=== PATIENT | female | born 1935 | race Caucasian/White ===

== ENCOUNTER 2020-05-15 11:59 | Inpatient (IN) | payer MEDICARE ==
[~2020-05-15] VITALS: Ht 157.5 cm; Wt 68.4 kg
[2020-05-15 13:00] LABS: BASO # 0.1 x10^3/uL (0.0-0.2); BASO % 1 % (0-3); EOS # 0.3 x10^3/uL (0.0-0.7); EOS % 4 % (0-3); HEMATOCRIT 36.1 % (36.0-47.0); HEMOGLOBIN 11.6 g/dL (12.0-15.5); LYMPH # 1.5 x10^3/uL (1.0-4.8); LYMPH % 18 % (24-48); MEAN CORPUSCULAR HEMOGLOBIN 29 pg (25-35); MEAN CORPUSCULAR HGB CONC 32 g/dL (31-37); MEAN CORPUSCULAR VOLUME 90 fL (79-100); MONO # 0.9 x10^3/uL (0.0-1.1); MONO % 11 % (0-9); NEUT # 5.7 x10^3uL (1.8-7.7); NEUT % 67 % (31-73); PLATELET COUNT 450 x10^3/uL (140-400); RED BLOOD COUNT 4.02 x10^6/uL (3.50-5.40); RED CELL DISTRIBUTION WIDTH 17.7 % (11.5-14.5); WHITE BLOOD COUNT 8.6 x10^3/uL (4.0-11.0)
--- NOTE | 2020-05-15 13:12 | RAD ---
ADDENDUM #1 Addendum: The history section of the report also includes "pain". Electronically signed by: Bettye Dexter MD (05/22/2020 8:18 AM) [id number] ORIGINAL REPORT EXAM: Head and cervical spine CT without contrast. HISTORY: Fall. TECHNIQUE: Computed tomographic images of the head and cervical spine were obtained without contrast. *One or more of the following individualized dose reduction techniques were utilized for this examina tion: 1. Automated exposure control. 2. Adjustment of the mA and/or kV according to patient size. 3. Use of iterative reconstruction technique. COMPARISON: None. FINDINGS: Head: There is no acute or subacute intracranial hemorrhage. There is no mass effect or midline shift . There is no hydrocephalus. There is encephalomalacia due to chronic infarction involving the right frontoparietal junction near the vertex. There are are extensive areas of hypodensity within the cere bral white matter, likely due to chronic small vessel disease. There is cerebral volume loss. There i s evidence of lens surgery. The paranasal sinuses mastoid air cells are clear. No suspicious calvaria l lesion is seen. Cervical spine: There is mild anterolisthesis of C7 on T1. There is multilevel endplate remodeling wi th disc space narrowing and osteophytosis. This is predominantly at C5-C6 and C6-C7. There is calcifi ed pannus surrounding the dens. There is multilevel facet and uncovertebral arthropathy. The combinat ion of degenerative changes results in mild left foraminal stenosis at C3-C4, moderate left foraminal stenosis at C4-C5, severe right greater than left foraminal and mild central canal stenosis at C5-C6 and severe bilateral foraminal and mild central canal stenosis at C6-C7. IMPRESSION: 1. No acute intracranial finding or evidence of acute cervical spine trauma. 2. Chronic infarct within the right frontoparietal junction and extensive bilateral cerebral white ma tter is likely due to chronic small vessel disease. 3. Multilevel degenerative change of the cervical spine, resulting in stenosis at the lower cervical levels. This is described above. Electronically signed by: Bettye Dexter MD (05/15/2020 1:09 PM) [id number]
--- NOTE | 2020-05-15 13:14 | RAD ---
XR CHEST 1V History: Reason: fall / Spl. Instructions: / History: . Pain Comparison: None. Findings: Ill-defined opacities bilaterally. No pleural effusion. No pneumothorax. Normal heart size. Impression: 1. Linear ill-defined opacities bilaterally, may represent atelectasis or developing infiltrates. Re commend further clinical evaluation. Electronically signed by: Fitz Campoverde DO (05/15/2020 1:11 PM) [facility]
--- NOTE | 2020-05-15 13:17 | RAD ---
XR PELVIS 1-2V History: Reason: fall / Spl. Instructions: / History: . Pain Technique: AP view the pelvis. Comparison: None. Findings: Normal AP alignment of the hips. No fracture. Mild pubic symphysis DJD. Lower lumbar spondylosis. Impression: 1. No acute osseous abnormality. Electronically signed by: Fitz Campoverde DO (05/15/2020 1:14 PM) [facility]
--- NOTE | 2020-05-15 13:22 | RAD ---
XR KNEE 3 VIEWS History: Reason: fall / Spl. Instructions: / History: . Pain Technique: 3 views bilateral knees. Comparison: None. Findings: Right knee: Genu varus alignment. No dislocation. Moderate to severe tricompartment knee DJD most pro minent within the medial and patellofemoral compartments. No significant knee joint effusion. No frac ture. Vascular calcifications. Left knee: Genu varus alignment. No dislocation. No fracture. Left knee moderate tricompartment degen erative changes most prominent within the medial and patellofemoral compartments. No significant knee joint effusion. Vascular calcifications. Impression: 1. No acute osseous abnormality. 2. Bilateral knee DJD, right greater than left. Electronically signed by: Fitz Campoverde DO (05/15/2020 1:19 PM) [facility]
--- NOTE | 2020-05-15 13:28 | EKG ---
[address] [address] Test Date: 2020-05-15 Test Time: 12:39:16 Pat Name: ERLIN CHANEY Department: Room: Gender: F Landscaping Crew Leader: RAFAEL : 1935 Requested By: MISSAEL BOBO Order Number: [id number] Reading MD: Measurements Intervals [place] Rate: 89 P: 49 WV: 168 QRS: -49 QRSD: 138 T: 11 QT: 376 QTc: 459 Interpretive Statements SINUS RHYTHM ABNORMAL LEFT AXIS DEVIATION RIGHT BUNDLE BRANCH BLOCK RVH WITH REPOLARIZATION ABNORMALITY QRS(T) CONTOUR ABNORMALITY CONSIDER INFERIOR INFARCT ABNORMAL ECG RI6.02 No previous ECG available for comparison
[2020-05-15 13:55] LABS: CREATININE 2.9 mg/dL (0.6-1.0); GFR 15.5; POTASSIUM 4.3 mmol/L (3.5-5.1)
[2020-05-15 14:01] LABS: ALBUMIN 2.7 g/dL (3.4-5.0); ALBUMIN/GLOBULIN RATIO 0.6 (1.0-1.7); TOTAL BILIRUBIN 0.2 mg/dL (0.2-1.0); TOTAL PROTEIN 7.5 g/dL (6.4-8.2)
[2020-05-15] MEDS ORDERED: IV NORMAL SALINE 50ML 50 ML ONE (14:07)
[2020-05-15] MEDS ORDERED: cefTRIAXone SODIUM 1 GM VIAL ONE (14:07)
[2020-05-15 14:14] LABS: BACTERIA,URINE MANY /HPF (0-FEW); BILIRUBIN,URINE NEG (NEG); CLARITY,URINE CLOUDY; COLOR,URINE YELLOW; GLUCOSE,URINE NEG (NEG); NITRITE,URINE NEG (NEG); UROBILINOGEN,URINE 0.2 mg/dL (0.2 mg/dL); WBC,URINE TNTC /HPF (0-4)
--- NOTE | 2020-05-15 14:28 | PHYS DOC ---
Past History Past Medical History: High Cholesterol, Hypertension, Stroke Alcohol Use: None General Adult EDM: Chief Complaint: MECHANICAL FALL HPI: HPI: 85-year-old female past medical history of hypertension, hyperlipidemia and CVA, presents to the ED with patient's granddaughter in law, patient complains of sore throat for the past 5 days " it's why I have not eaten anything." Granddaughter reports that patient is making bizarre inappropriate statements-is not as alert as she normally is. Pt fell on friday. Has chronic knee pain and can no longer bear weight. Review of Systems: Review of Systems: Constitutional: Denies fever or chills Eyes: Denies change in visual acuity or eye discharge HENT: Denies nasal congestion or rhinorrhea Respiratory: Denies cough or shortness of breath Cardiovascular: Denies chest pain or edema GI: Denies abdominal pain, nausea, vomiting, bloody stools or diarrhea : Denies hematuria or vaginal bleeding Musculoskeletal: Denies back pain or joint deformity Integument: Denies rash Neurologic: Denies headache, midline neck pain focal weakness or sensory changes Endocrine: Denies polyuria or polydipsia Lymphatic: Denies swollen glands Psychiatric: Denies depression or anxiety Current Medications: Current Meds: Current Medications Medications (Trade) Dose Ordered Sig/Parth Start Time Stop Time Status Last Admin Dose Admin Ceftriaxone Sodium 1 gm/ Sodium Chloride 50 ml @ 100 mls/hr 1X ONCE 05/15/20 14:00 05/15/20 14:29 05/15/20 14:13 100 MLS/HR Ceftriaxone Sodium (Rocephin) 1 gm STK-MED ONCE 05/15/20 14:07 05/15/20 14:07 DC Sodium Chloride 50 ml @ As Directed STK-MED ONCE 05/15/20 14:07 05/15/20 14:07 DC Allergies: Allergies: Allergies Coded Allergies Type Severity Reaction Last Updated Verified No Known Drug Allergies 05/15/20 No Physical Exam: PE: Constitutional: Well developed, well nourished, no acute distress, non-toxic appearance-flu appearing. HENT: Normocephalic, atraumatic, very dry cracked mucous membranes Eyes: EOMI, conjunctiva normal, no discharge. Neck: Normal range of motion, supple, Cardiovascular: S1/2 present, regular rhythm Lungs & Thorax: Speaking in full sentences, bilateral equal chest rise, no tachypnea or increased work of breathing Abdomen: soft, no tenderness, Skin: Warm, dry, no erythema, no rash. [] Extremities: No tenderness, no cyanosis, Neurologic: Alert and oriented X 3, normal motor function, normal sensory function, no focal deficits noted. [] Psychologic: Affect normal, mood normal. [] Current Patient Data: Labs: Laboratory Tests Test 05/15/20 12:36 05/15/20 13:28 05/15/20 13:44 White Blood Count 8.6 x10^3/uL (4.0-11.0) Red Blood Count 4.02 x10^6/uL (3.50-5.40) Hemoglobin 11.6 g/dL (12.0-15.5) L Hematocrit 36.1 % (36.0-47.0) Mean Corpuscular Volume 90 fL (79-100) Mean Corpuscular Hemoglobin 29 pg (25-35) Mean Corpuscular Hemoglobin Concent 32 g/dL (31-37) Red Cell Distribution Width 17.7 % (11.5-14.5) H Platelet Count 450 x10^3/uL (140-400) H Neutrophils (%) (Auto) 67 % (31-73) Lymphocytes (%) (Auto) 18 % (24-48) L Monocytes (%) (Auto) 11 % (0-9) H Eosinophils (%) (Auto) 4 % (0-3) H Basophils (%) (Auto) 1 % (0-3) Neutrophils # (Auto) 5.7 x10^3uL (1.8-7.7) Lymphocytes # (Auto) 1.5 x10^3/uL (1.0-4.8) Monocytes # (Auto) 0.9 x10^3/uL (0.0-1.1) Eosinophils # (Auto) 0.3 x10^3/uL (0.0-0.7) Basophils # (Auto) 0.1 x10^3/uL (0.0-0.2) Sodium Level 140 mmol/L (136-145) Potassium Level 4.3 mmol/L (3.5-5.1) Chloride Level 105 mmol/L (98-107) Carbon Dioxide Level 21 mmol/L (21-32) Anion Gap 14 (6-14) Blood Urea Nitrogen 52 mg/dL (7-20) H Creatinine 2.9 mg/dL (0.6-1.0) H Estimated GFR (Cockcroft-Gault) 15.5 BUN/Creatinine Ratio 18 (6-20) Glucose Level 166 mg/dL (70-99) H Calcium Level 9.0 mg/dL (8.5-10.1) Total Bilirubin 0.2 mg/dL (0.2-1.0) Aspartate Amino Transferase (AST) 12 U/L (15-37) L Alanine Aminotransferase (ALT) 19 U/L (14-59) Alkaline Phosphatase 116 U/L (46-116) Creatine Kinase 17 U/L (26-192) L Troponin I Quantitative < 0.017 ng/mL (0-0.055) Total Protein 7.5 g/dL (6.4-8.2) Albumin 2.7 g/dL (3.4-5.0) L Albumin/Globulin Ratio 0.6 (1.0-1.7) L Urine Collection Type U cath Urine Color Yellow Urine Clarity Cloudy Urine pH 6.0 Urine Specific [place] 1.020 Urine Protein >100 mg/dl (NEG-TRACE) Urine Glucose (UA) Neg mg/dL (NEG) Urine Ketones (Stick) Neg mg/dL (NEG) Urine Blood Large (NEG) Urine Nitrite Neg (NEG) Urine Bilirubin Neg (NEG) Urine Urobilinogen Dipstick 0.2 mg/dL (0.2 mg/dL) Urine Leukocyte Esterase Mod (NEG) Urine RBC 11-20 /HPF (0-2) Urine WBC Tntc /HPF (0-4) Urine Squamous Epithelial Cells None /LPF Urine Bacteria Many /HPF (0-FEW) Vital Signs: Vital Signs Date Time Temp Pulse Resp B/P (MAP) Pulse Ox O2 Delivery O2 Flow Rate FiO2 05/15/20 14:11 80 16 122/76 (91) 97 Room Air 05/15/20 12:08 98.0 EKG: EKG: Sinus rhythm 89 bpm, left axis deviation, QRS 138, T wave inversion lead III, V1, V2 and V3, right bundle branch block with strain, no ST elevations or ST depressions Radiology/Procedures: Radiology/Procedures: MAGING REPORT Signed PATIENT: ERLIN CHANEY ACCOUNT: [id number] : 1935 LOCATION: ER AGE: 85 SEX: F EXAM STATUS: REG ER ORD. PHYSICIAN: MISSAEL BOBO DO REASON: fall PROCEDURE: PELVIS XR PELVIS 1-2V History: Reason: fall / Spl. Instructions: / History: . Pain Technique: AP view the pelvis. Comparison: None. Findings: Normal AP alignment of the hips. No fracture. Mild pubic symphysis DJD. Lower lumbar spondylosis. Impression: 1. No acute osseous abnormality. Electronically signed by: Fitz Campoverde DO (05/15/2020 1:14 PM) [facility] DICTATED AND SIGNED BY: FITZ CAMPOVERDE DO DATE: 05/15/20 131 CC: PCP,UNKNOWN; MISSAEL BOBO DO ~MTH0 0 IMAGING REPORT Signed PATIENT: ERLIN CHANEY ACCOUNT: [id number] : 1935 LOCATION: ER AGE: 85 SEX: F EXAM STATUS: REG ER ORD. PHYSICIAN: MISSAEL BOBO DO REASON: fall PROCEDURE: KNEE BILAT 3V XR KNEE 3 VIEWS History: Reason: fall / Spl. Instructions: / History: . Pain Technique: 3 views bilateral knees. Comparison: None. Findings: Right knee: Genu varus alignment. No dislocation. Moderate to severe tricompartment knee DJD most prominent within the medial and patellofemoral compartments. No significant knee joint effusion. No fracture. Vascular calcifications. Left knee: Genu varus alignment. No dislocation. No fracture. Left knee moderate tricompartment degenerative changes most prominent within the medial and patellofemoral compartments. No significant knee joint effusion. Vascular calc ifications. Impression: 1. No acute osseous abnormality. 2. Bilateral knee DJD, right greater than left. Electronically signed by: Fitz Campoverde DO (05/15/2020 1:19 PM) [facility] DICTATED AND SIGNED BY: FITZ CAMPOVERDE DO DATE: 05/15/20 1314 CC: PCP,UNKNOWN; MISSAEL BOBO DO ~MTH0 0 IMAGING REPORT Signed PATIENT: ERLIN CHANEY ACCOUNT: [id number] : 1935 LOCATION: ER AGE: 85 SEX: F EXAM STATUS: REG ER ORD. PHYSICIAN: MISSAEL BOBO DO REASON: fall PROCEDURE: CT HEAD AND CERVICAL SPINE WO EXAM: Head and cervical spine CT without contrast. HISTORY: Fall. TECHNIQUE: Computed tomographic images of the head and cervical spine were obtained without contrast. *One or more of the following individualized dose reduction techniques were utilized for this examination: 1. Automated exposure control. 2. Adjustment of the mA and/or kV according to patient size. 3. Use of iterative reconstruction technique. COMPARISON: None. FINDINGS: Head: There is no acute or subacute intracranial hemorrhage. There is no mass effect or midline shift. There is no hydrocephalus. There is encephalomalacia due to chronic infarction involving the right frontoparietal junction near the vertex. There are are extensive areas of hypodensity within the cerebral white matter, likely due to chronic small vessel disease. There is cerebral volume loss. There is evidence of lens surgery. The paranasal sinuses mastoid air cells are clear. No suspicious calvarial lesion is seen. Cervical spine: There is mild anterolisthesis of C7 on T1. There is multilevel endplate remodeling with disc space narrowing and osteophytosis. This is predominantly at C5-C6 and C6-C7. There is calcified pannus surrounding the dens. There is multilevel facet and uncovertebral arthropathy. The combination of degenerative changes results in mild left foraminal stenosis at C3-C4, moderate left foraminal stenosis at C4-C5, severe right greater than left for aminal and mild central canal stenosis at C5-C6 and severe bilateral foraminal and mild central canal stenosis at C6-C7. IMPRESSION: 1. No acute intracranial finding or evidence of acute cervical spine trauma. 2. Chronic infarct within the right frontoparietal junction and extensive bilateral cerebral white matter is likely due to chronic small vessel disease. 3. Multilevel degenerative change of the cervical spine, resulting in stenosis at the lower cervical levels. This is described above. Electronically signed by: Bettye Colon MD (05/15/2020 1:09 PM) [id number] DICTATED AND SIGNED BY: BETTYE COLON MD DATE: 05/15/20 1306 CC: PCP,UNKNOWN; MISSAEL BOBO DO ~MTH0 0 IMAGING REPORT Signed PATIENT: ERLIN CHANEY ACCOUNT: [id number] : 1935 LOCATION: ER AGE: 85 SEX: F EXAM STATUS: REG ER ORD. PHYSICIAN: MISSAEL BOBO DO REASON: fall PROCEDURE: CHEST AP ONLY XR CHEST 1V History: Reason: fall / Spl. Instructions: / History: . Pain Comparison: None. Findings: Ill-defined opacities bilaterally. No pleural effusion. No pneumothorax. Normal heart size. Impression: 1. Linear ill-defined opacities bilaterally, may represent atelectasis or developing infiltrates. Recommend further clinical evaluation. Electronically signed by: Fitz Campoverde DO (05/15/2020 1:11 PM) [facility] DICTATED AND SIGNED BY: FITZ CAMPOVERDE DO DATE: 05/15/20 1310 CC: PCP,UNKNOWN; MISSAEL BOBO DO ~MTH0 0 Heart Score: C/O Chest Pain: No Risk Factors: Risk Factors: DM, Current or recent (<one month) smoker, HTN, HLP, family history of CAD, obesity. Risk Scores: Score 0 - 3: 2.5% MACE over next 6 weeks - Discharge Home Score 4 - 6: 20.3% MACE over next 6 weeks - Admit for Clinical Observation Score 7 - 10: 72.7% MACE over next 6 weeks - Early Invasive Strategies Course & Med Decision Making: Course & Med Decision Making Pertinent Labs and Imaging studies reviewed. (See chart for details) Concern for delirium secondary to urinary tract infection with renal insufficiency (prerenal no prior for baseline comparison) and normocytic anemia. Son is DPOA and per phone conversation w/granddaughter, thinks pt is a DNR but he cannot find the form - reports if pt should need intubating/is in respiratory distress or if her heart stops, family does not want patient intubated or CPR performed. Granddaughter at bedside agrees with this plan. Son is on his way to the hospital. I have spoken with the patient and/or caregivers. I have explained the patient's condition, diagnosis and treatment plan based on the information available to me at this time. I have answered the patient's and/or caregivers questions and answered any concerns. The patient and/or caregivers have as good an understanding of the patient's diagnosis, condition and treatment plan as can be expected at this point. The patient has been stabilized within the capability of the emergency department. The patient will be transported for further care and management or will be moved to an observation or inpatient service. I have communicated with the staff or medical practitioner taking over this patient's care. Dragon Disclaimer: Kilo Disclaimer: This electronic medical record was generated, in whole or in part, using a voice recognition dictation system. Departure Departure: Impression: Primary Impression: Delirium Additional Impressions: Renal insufficiency Normocytic anemia UTI (urinary tract infection) Disposition: ADMITTED INPT THIS HOSP Admitting Physician: Jeff Otero Condition: STABLE Referrals: PCP,UNKNOWN (PCP) MISSAEL BOBO DO May 15, 2020 14:28
[2020-05-15] MEDS ORDERED: AZITHROMYCIN 500 MG in IV NORMAL SALINE 250ML 250 ML IV ONE (14:30)
[2020-05-15] MEDS ORDERED: IV NORMAL SALINE 250ML 250 ML ONE (14:45)
[2020-05-15] MEDS ORDERED: AZITHROMYCIN 500 MG VIAL. IV ONE (14:46)
[2020-05-15] MEDS ORDERED: BENZOCAINE/MENTHOL LOZNGE 18'S BOX. PO PRN (15:15)
[2020-05-15] MEDS ORDERED: ACETAMINOPHEN 325 MG TABLET PO PRN (15:45)
[2020-05-15] MEDS ORDERED: IV NORMAL SALINE 1,000ML 1,000 ML IV ONE (15:45)
[2020-05-15 17:15] VITALS: BP 132/74
--- NOTE | 2020-05-15 17:27 | NUR ---
NSG NOTE; ADMISSION ADMIT TO ROOM 124 AT 1630 FROM ED VIA CART ACCOMP BY EMS PERSONNEL ADMITTED FOR FALL, AMS, UTI AND ACUTE RENAL INSUFFICIENCY
[2020-05-15] MEDS ORDERED: POLYETHYLENE GLYCOL 3350 17 GM PACKET. PO PRN (18:45)
[2020-05-15] MEDS ORDERED: POLY17PO5 PO (18:49)
[2020-05-15] MEDS ORDERED: ASCO500C PO (18:49)
[2020-05-15] MEDS ORDERED: ZINC PO (18:49)
[2020-05-15] MEDS ORDERED: ACET500T68 PO (18:49)
[2020-05-15] MEDS ORDERED: AMLO-186 PO (18:49)
[2020-05-15] MEDS ORDERED: ASPI-630 PO (18:49)
[2020-05-15] MEDS ORDERED: SOLI10TA2 PO (18:49)
[2020-05-15] MEDS ORDERED: GABA100C81 PO (18:49)
[2020-05-15] MEDS ORDERED: SIMV40TA18 PO (18:49)
[2020-05-15] MEDS ORDERED: FAMO-63 PO (18:49)
[2020-05-15] MEDS ORDERED: DOCU-109 PO (18:49)
[2020-05-15] MEDS ORDERED: CHOL400T36 PO (18:49)
--- NOTE | 2020-05-15 19:04 | NUR ---
NSG NOTE; [facility] BATH AID 3X WEEKLY, PT 2X WEEKLY, OT 1X WEEKLY, RN NO LONGER COMES OUT TO THE HOUSE PT IS LEFT HOME ALONE AT HER SON'S HOUSE M-F DAILY WHILE THEY ARE AT WORK. SHE HAS A LIFE ALERT WHICH SHE USED LAST WEEK WHEN UNABLE TO GET UP OFF THE TOILET
[2020-05-15] MEDS: OXYBUTYNIN CHLORIDE 5 MG TABLET PO SCH (19:35)
[2020-05-15 22:19] VITALS: BP 127/72
[2020-05-16 05:46] VITALS: BP 144/60
[2020-05-16 06:29] LABS: CALCIUM 8.8 mg/dL (8.5-10.1); CREATININE 2.4 mg/dL (0.6-1.0); GFR 19.3; POTASSIUM 4.1 mmol/L (3.5-5.1)
[2020-05-16] MEDS: FAMOTIDINE 20 MG TABLET PO SCH (09:07)
[2020-05-16] MEDS: DOCUSATE SODIUM 100 MG CAPSULE PO SCH (09:07)
[2020-05-16] MEDS: ASPIRIN CHEWABLE 81 MG TABLET. PO SCH (09:07)
[2020-05-16] MEDS: amLODIPine BESYLATE 5 MG TABLET PO SCH (09:07)
[2020-05-16] MEDS: OXYBUTYNIN CHLORIDE 5 MG TABLET PO SCH ×3 (09:07→19:51)
--- NOTE | 2020-05-16 09:38 | HP ---
ADMIT DATE: 05/15/2020 ATTENDING PHYSICIAN: Dr. Stoll. CHIEF COMPLAINT: Mechanical fall and weakness. HISTORY OF PRESENT ILLNESS: The patient is an 85-year-old female from [place], [place]. Her son lives in [place]. She had fallen at home and has been unable to care for self, sustaining injury to her knee. She cannot bear weight. She has had a previous stroke. She is becoming more debilitated. Clinically, she appears dehydrated. She is acting and making bizarre statements. There is underlying dementia. Clinically, she was dry with elevated BUN and creatinine. She was admitted with dehydration, altered mentation and frequent falls and generalized debilitation. PAST MEDICAL HISTORY: Significant for essential hypertension, hyperlipidemia, old CVA, generalized debilitation and arthritis. She cannot bear weight on the knee. ALLERGIES: She has no recorded drug allergies. CURRENT MEDICINES: Reviewed. She takes scheduled Tylenol, amlodipine, ascorbic acid, aspirin, vitamin D3, docusate, Pepcid, Neurontin, MiraLax, Zocor, VESIcare and zinc. SOCIAL HISTORY: Nonsmoker, nondrinker. Supposedly, she had COVID exposure, back in February of this past year, she has recovered from that. FAMILY HISTORY: Noncontributory. REVIEW OF SYSTEMS: Significant for mild nonproductive cough, no fevers, chills, generalized weakness, degenerative arthritis pain. All other systems reviewed and turned to be negative. PHYSICAL EXAMINATION: GENERAL: When I saw her, this is a pleasant elderly female, appears mildly confused. INITIAL VITAL SIGNS: Showed a blood pressure 144/60, pulse 67 and regular, temperature 97.5 degrees Fahrenheit, oxygen saturation 94% on room air. HEENT: Head is without trauma. Pupils are reactive. Sclerae are nonicteric. Oropharynx clear. NECK: Supple, no bruits. LUNGS: Good breath sounds. CARDIOVASCULAR: Showed regular heart tones. No gallops. ABDOMEN: Soft, no guarding. Bowel sounds are hypoactive. EXTREMITIES: Showed trace edema. NEUROLOGIC: Pleasantly confused, otherwise intact. SKIN: Warm and dry. Speech is fluent. PERTINENT LABORATORY STUDIES: On admission, her hemoglobin was 11.6 g/dL with white count of 8600. BUN was 52 mg/dL, creatinine 2.9 mg/dL. I do not know what her baseline is. Potassium is 4.3 mEq per liter, sodium 140 mEq/L. Nonfasting blood sugar 166 mg/dL. Cardiac enzymes were negative. Transaminases are all within normal range. The obligatory imaging studies, she had a CT of the head, which showed no mass effect, no intracranial hemorrhage. There is encephalomalacia of the right frontoparietal junction suggesting an old stroke. There is chronic small vessel disease. There is mild anterior spondylolisthesis of C7 on T1, multilevel endplate, remodeling with disk narrowing and osteophytosis. There is moderate left foraminal stenosis at C4-C5 level. Chest x-ray showed no decompensation or acute infiltrates identified. There is no evidence of long bone fractures. ASSESSMENT: 1. This 85-year-old female has become progressively weaker. She is falling at home and she cannot take care of herself. 2. Generalized debilitation. 3. Recent fall. 4. Degenerative arthritis. 5. Hyperlipidemia. 6. Underlying dementia. 7. Dehydration with prerenal azotemia. PLAN: 1. Admit to the inpatient unit. 2. Gentle IV hydration. 3. Serial chemistries. 4. Diet as tolerated. 5. Physical therapy for evaluation. 6. manager quality compliance will look for eventual placement per family's inability to care for her. She is a DNR per advanced directive. FANTASMA STOLL MD DR: CESAR/erik JOB#: [id number] / [id number]
[2020-05-16 10:03] VITALS: BP 115/47
[2020-05-16] MEDS: ACETAMINOPHEN 500 MG TABLET PO PRN (11:07)
[2020-05-16 15:38] VITALS: BP 115/51
--- NOTE | 2020-05-16 15:49 | NUR ---
Pt complains of knee pain that is relived by resting. pt calm and resting in bed.
[2020-05-16 19:18] VITALS: BP 112/68
[2020-05-16] MEDS: ATORVASTATIN CALCIUM 20 MG TABLET PO SCH (19:51)
[2020-05-16 22:22] VITALS: BP 126/62
[2020-05-17 05:07] VITALS: BP 134/53
[2020-05-17 07:22] LABS: CALCIUM 8.9 mg/dL (8.5-10.1); CREATININE 2.3 mg/dL (0.6-1.0); GFR 20.3; POTASSIUM 4.1 mmol/L (3.5-5.1)
[2020-05-17] MEDS: OXYBUTYNIN CHLORIDE 5 MG TABLET PO SCH ×3 (08:37→20:12)
[2020-05-17] MEDS: amLODIPine BESYLATE 5 MG TABLET PO SCH (08:37)
[2020-05-17] MEDS: DOCUSATE SODIUM 100 MG CAPSULE PO SCH (08:37)
[2020-05-17] MEDS: ASPIRIN CHEWABLE 81 MG TABLET. PO SCH (08:37)
[2020-05-17] MEDS: FAMOTIDINE 20 MG TABLET PO SCH (08:37)
[2020-05-17 10:19] VITALS: BP 108/72
[2020-05-17 15:16] VITALS: BP 122/55
[2020-05-17] MEDS: IV DEXTROSE 5 %-0.2 % NACL 1,000 ML IV SCH ×2 (15:53→23:52)
[2020-05-17] MEDS: ACETAMINOPHEN 500 MG TABLET PO PRN (17:05)
--- NOTE | 2020-05-17 17:45 | PN ---
DATE: 05/17/2020 SUBJECTIVE: The patient is resting, slightly propped up in bed, in no apparent distress. She continues to be somewhat confused, but denied any complaint. The nursing staff stated that the patient was able to walk with a walker with physical therapy. She was admitted with acute kidney injury that is improving. Her creatinine is coming down steadily from 2.9 down to 2.3. Her blood cultures showed no growth after one day and her throat culture also was negative; however, her urine culture has grown more than 100,000 colony forming units per mL of gram negative rods identified as Escherichia coli. She also grew more than 100,000 colony forming units per mL of gram-positive rods identified as lactobacillus species. The Escherichia coli is susceptible to almost all antibiotics including ceftriaxone. ASSESSMENT: 1. This is an 85-year-old female patient who apparently was admitted because of progressive weakness. She is falling at home. She cannot take care of herself. 2. She has generalized debility. 3. Recent fall. 4. Generalized degenerative osteoarthritis. 5. Hyperlipidemia. 6. Underlying dementia. 7. Dehydration and acute on chronic kidney injury. 8. Urinary tract infection with growth of more than 100,000 colony forming units per mL of gram-negative rods identified as Escherichia coli. PLAN: My plan is to continue with IV fluid. I did start her on IV ceftriaxone. Apparently, she is scheduled to be discharged tomorrow. COLLINS YU MD DR: NARCISO/erik JOB#: [id number] / [id number]
[2020-05-17 19:00] VITALS: BP 131/69
[2020-05-17] MEDS: ATORVASTATIN CALCIUM 20 MG TABLET PO SCH (20:12)
[2020-05-17 23:52] VITALS: BP 151/69
--- NOTE | 2020-05-18 02:01 | NUR ---
Pt A&Ox3, ambulating x1 with walker, did c/o knee pain at beginning of shift relieved by rest and elevation. Pt belongings gathered for transport at 1000 to facility.
[2020-05-18 05:52] LABS: HEMATOCRIT 34.4 % (36.0-47.0); RED BLOOD COUNT 3.85 x10^6/uL (3.50-5.40); RED CELL DISTRIBUTION WIDTH 15.8 % (11.5-14.5); WHITE BLOOD COUNT 8.8 x10^3/uL (4.0-11.0)
[2020-05-18 06:07] LABS: ALBUMIN 2.2 g/dL (3.4-5.0); ALBUMIN/GLOBULIN RATIO 0.4 (1.0-1.7); CALCIUM 8.8 mg/dL (8.5-10.1); CREATININE 2.1 mg/dL (0.6-1.0); GFR 22.5; POTASSIUM 4.3 mmol/L (3.5-5.1); TOTAL BILIRUBIN 0.1 mg/dL (0.2-1.0); TOTAL PROTEIN 7.3 g/dL (6.4-8.2)
[2020-05-18 06:28] VITALS: BP 132/64
[2020-05-18] MEDS: DOCUSATE SODIUM 100 MG CAPSULE PO SCH (07:34)
[2020-05-18] MEDS: ASPIRIN CHEWABLE 81 MG TABLET. PO SCH (07:34)
[2020-05-18] MEDS: FAMOTIDINE 20 MG TABLET PO SCH (07:34)
[2020-05-18 07:35] VITALS: BP 132/64
[2020-05-18] MEDS: OXYBUTYNIN CHLORIDE 5 MG TABLET PO SCH (07:35)
[2020-05-18] MEDS: amLODIPine BESYLATE 5 MG TABLET PO SCH (07:35)
--- NOTE | 2020-05-18 09:57 | NUR ---
NURSING NOTE DISCHARGE PT DISCHARGED TO [facility] REPORT CALLED TO [place]. PT GIVEN WRITTEN AND VERBAL DISCHARGE INSTRUCTIONS. PACKET SENT WITH TRANSPORT. PT SENT WITH ALL BELONGINGS THAT WERE IN HER ROOM AND HER WHEELCHAIR. KARUNA LIVINGSTON.
--- NOTE | 2020-05-18 10:13 | NUR ---
BELONGINGS PT PHONE PREMIUM SERVICE REPRESENTATIVE FOUND BEHIND BED BY EVS. PHONED SON, WILL MAIL TO PT. LET FACILITY KNOW THAT IT WILL GO IN THE MAIL. KARUNA LIVINGSTON.
== END 2020-05-18 09:58 | DRG 640 ==
LOC: ER 11:59 → 1 SOUTH 15:49
PROVIDERS: ADMIT Hospitalist; ATTEND Hospitalist
DX: E86.0 Dehydration (principal); N17.0 Acute kidney failure with tubular necrosis; E43 Unspecified severe protein-calorie malnutrition; N39.0 Urinary tract infection, site not specified; B96.20 Unspecified Escherichia coli [E. coli] as the cause of diseases classified elsewhere; D64.9 Anemia, unspecified; E78.00 Pure hypercholesterolemia, unspecified; E78.5 Hyperlipidemia, unspecified; F03.90 Unspecified dementia, unspecified severity, without behavioral disturbance, psychotic disturbance, mood disturbance, and anxiety; G89.29 Other chronic pain; I12.9 Hypertensive chronic kidney disease with stage 1 through stage 4 chronic kidney disease, or unspecified chronic kidney disease; M17.0 Bilateral primary osteoarthritis of knee; N18.9 Chronic kidney disease, unspecified; Z86.73 Personal history of transient ischemic attack (TIA), and cerebral infarction without residual deficits; Z20.822 Contact with and (suspected) exposure to COVID-19; Z68.27 Body mass index [BMI] 27.0-27.9, adult; Z86.16 Personal history of COVID-19
CPT/HCPCS: 36415; 70450; 71045; 72125; 72170; 73562; 80048; 80053; 81001; 82550; 83605; 84484; 85025; 85027; 87040; 87070; 87077; 87086; 87186; 87880; 93005; 96365; 96366; J0456; J0696; J7050; P9612; U0003; 97110; 97116; 97530; 97535; 99285-25; J7030